=== PATIENT | male | born 1990 | race Hispanic/Latino ===

== ENCOUNTER 2024-04-11 13:35 | Emergency (ER) | payer BC ==
[2024-04-11 14:12] LABS: Absolute Basophils 0.1 K/uL (0-0.5); Absolute Eosinophils 0.5 K/uL (0-0.5); Absolute Lymphocytes (CBC) 3.6 K/uL (0.7-4.9); Absolute Monocytes 0.7 K/uL (0.1-1.3); Absolute Neutrophil 7.1 K/uL (1.8-8.0); Basophils % 0.6 % (0-1.3); Eosinophils % 4.2 % (0-4.4); Hematocrit 45.3 % (39.6-49.0); Hemoglobin 14.9 g/dL (13.6-17.9); Lymphocytes % 29.7 % (15.3-44.8); MCH 29.7 pg (27.0-35.0); MCV 90.1 fL (80-100); MPV 8.2 fL (7.6-11.3); Monocytes % 5.9 % (3.3-12.3); Neutrophils % 59.6 % (41.7-73.7); Nucleated Red Blood Cells % 0.1 % (0-0); Platelets 339 thou/uL (152-406); RBC Red Blood Cell Count 5.02 M/uL (4.33-5.43); Red Cell Distribution Width 13.6 % (12.1-15.2)
[2024-04-11 14:27] LABS: ALT/SGPT 33 U/L (16-61); AST/SGOT 16 U/L (15-37); Albumin 3.8 g/dL (3.4-5.0); Alkaline Phosphatase 86 U/L (45-117); Anion Gap 8.7 mEq/L (5.0-15.0); BUN Blood Urea Nitrogen 11 mg/dL (7-18); Bicarbonate 25 mEq/L (21-32); Bilirubin Total 0.4 mg/dL (0.2-1.0); Glomerular Filtration Rate 119 ml/min (=/>90); Glucose Level 127 mg/dL (74-106); Magnesium 1.5 mg/dL (1.6-2.4); NT PRO-BNP 31 pg/mL (<125); Potassium 3.7 mEq/L (3.5-5.1); Protein, Total 7.8 g/dL (6.4-8.2); Sodium Level 136 mEq/L (136-145); Troponin High Sensitivity 29.8 pg/mL (<58.9)
[2024-04-11 14:29] LABS: Bilirubin Direct < 0.2 mg/dL (0-0.2); Bilirubin Indirect, Calculated 0.2 mg/dL (0.2-0.8)
--- NOTE | 2024-04-11 15:44 | RAD REPORT ---
EXAMINATION: ONE VIEW CHEST XR CLINICAL INDICATION: Male, 33 years old. [facility] MAIN CHEST PAIN Bed Name: 3 TECHNIQUE: Frontal chest projection is submitted. Examination is limited by patient positioning and t echnique. COMPARISON: No prior exam. FINDINGS: The lungs are well inflated and clear. No pneumothorax or sizable effusion. The heart is normal in s ize. IMPRESSION: No acute intrathoracic abnormalities.
[2024-04-11] MEDS ORDERED: MAGNESIUM OXIDE 400 MG TAB ONE (15:57)
--- NOTE | 2024-04-11 16:49 | EDPHYS ---
Physician Documentation [facility] Name: Kevan Coronel Age: 33 yrs Sex: Male : 1990 Arrival Date: 04/11/2024 Time: 13:35 Bed 3 Private MD: ED Physician Juancarlos Henning HPI: 04/11 13:51 This 33 yrs old Male presents to ER via Ambulatory with complaints of Chest kb Pain. 13:51 Pt is a 33 year old male who presents for chest pain to the left side that started at kb 0500 this morning and has not gotten any better. States he has felt some tingling to left arm and face as well. Denies shortness of breath, nausea, vomiting. States he took preworkout around 4:30, the worked out and the pain started after he took a shower and got into his truck to leave home. States he normally drinks the preworkout or an energy drink in the mornings and has never had these symptoms before. . Historical: - Allergies: 13:45 No Known Allergies; ko1 - Home Meds: 13:46 Mounjaro 2.5 mg/0.5 mL subcutaneous Pen Injector 2.5 mg [Active]; Metformin Oral ko1 [Active]; fenofibrate oral [Active]; - PMHx: 13:45 Diabetes mellitus; Hypercholesterolemia; ko1 - PSHx: 13:46 None; ko1 - Immunization history:: Adult Immunizations up to date. - Infectious Disease History:: Denies. - Social history:: Smoking status: Patient denies any tobacco usage or history of. ROS: 13:50 Constitutional: As per HPI kb Exam: 13:50 Constitutional: This is a well developed, well nourished patient who is awake, alert, kb and in no acute distress. Head/Face: Normocephalic, atraumatic. ENT: Moist Mucous membranes Cardiovascular: Regular rate Respiratory: Respirations even and unlabored. No increased work of breathing. Talking in full sentences Abdomen/GI: Soft, non-tender. No distention Skin: Warm, dry with normal turgor. Normal color. MS/ Extremity: Pulses equal, no cyanosis. Neurovascular intact. Full, normal range of motion. Neuro: Awake and alert, GCS 15, oriented to person, place, time, and situation. Moves all extremities. Normal gait. 14:28 ECG was reviewed by the Attending Physician. kb Vital Signs: 13:41 BP 150 / 112; Pulse 92; Resp 18; Temp 98.3; Pulse Ox 98% ; ko1 14:30 BP 124 / 81; Pulse 89; Resp 18; Pulse Ox 97% ; me1 16:21 BP 132 / 91; Pulse 83; Resp 16 S; Pulse Ox 100% on R/A; kc6 16:48 BP 126 / 85; Pulse 99; Resp 16 S; Pulse Ox 100% on R/A; kc6 MDM: 13:40 Patient medically screened. kb 13:50 Differential diagnosis: arrhythmia, acute MO, adverse reaction to preworkout, abnormal kb electrolytes. Data reviewed: vital signs, nurses notes. 16:28 Consideration of Admission/Observation admission considered but HEART score 1, serial kb troponins negative. Test considered but Not performed: CT: ct chest considered but d-dimer negative. Counseling: I had a detailed discussion with the patient and/or guardian regarding the historical points, exam findings, and any diagnostic results supporting the discharge/admit diagnosis, lab results, radiology results, the need for outpatient follow up, a family practitioner, to return to the emergency department if symptoms worsen or persist or if there are any questions or concerns that arise at home. 04/11 13:49 Order name: Basic Metabolic Panel; Complete Time: 14:38 kb 04/11 13:49 Order name: CBC with Diff; Complete Time: 14:24 kb 04/11 13:49 Order name: D-Dimer; Complete Time: 14:38 kb 04/11 13:49 Order name: LFT's; Complete Time: 14:38 kb 04/11 13:49 Order name: Magnesium; Complete Time: 14:38 kb 04/11 13:49 Order name: NT PRO-BNP; Complete Time: 14:38 kb 04/11 13:49 Order name: Troponin HS; Complete Time: 14:38 kb 04/11 15:32 Order name: Troponin High Sensitivity; Complete Time: 16:47 kb 04/11 13:49 Order name: XRAY Chest (1 view); Complete Time: 15:46 kb 04/11 13:49 Order name: Cardiac monitoring; Complete Time: 14:12 kb 04/11 13:49 Order name: EKG - Nurse/Tech; Complete Time: 14:12 kb 04/11 13:49 Order name: IV Saline Lock; Complete Time: 14:04 kb 04/11 13:49 Order name: Labs collected and sent; Complete Time: 14:04 kb 04/11 13:49 Order name: O2 Per Protocol; Complete Time: 14:04 kb 04/11 13:49 Order name: O2 Sat Monitoring; Complete Time: 14:04 kb EC:28 Rate is 89 beats/min. Rhythm is regular. QRS [place] is Normal. CA interval is normal at kb 156 msec. QRS interval is normal at 98 msec. QT interval is normal at 413 msec. Administered Medications: 15:58 Drug: Magnesium PO 400 mg PO once Route: PO; me1 16:49 Follow up: Response: No adverse reaction kc6 Disposition: 17:19 Co-signature as Attending Physician, Juancarlos Henning MD I reviewed the patient's care rn provided by the Advanced Practice Provider and agree with the diagnosis and treatment plan. Disposition Summary: 04/11/24 16:48 Discharge Ordered Notes: Location: Home kb Condition: Stable kb Diagnosis - Chest pain, unspecified kb Followup: kb - With: Emergency Department - When: As needed - Reason: Worsening of condition Followup: kb - With: Private Physician - When: 2 - 3 days - Reason: Recheck today's complaints, Continuance of care, Re-evaluation by your physician Discharge Instructions: - Discharge Summary Sheet kb - Nonspecific Chest Pain, Adult, Clua-ab-Tygn kb Forms: - Medication Reconciliation Form kb - Antibiotic Education kb - Prescription Opioid Use kb - Patient Portal Instructions kb - Leadership Thank You Letter kb Signatures: Dispatcher [employer] EDSalma St FNP-C JINRIKSHA DRIVER-Ckb Juancarlos Henning MD MD rn Oliver, Kathy, RN RN ko1 Nori Barnard RN RN me1 Lana Peraza RN kc6 Corrections: (The following items were deleted from the chart) 13:50 13:50 Chest Single View+RAD.RAD.[email or web address] ordered. EDND EDND
--- NOTE | 2024-04-11 16:49 | ER ---
Nurse's Notes [facility] Name: Kevan Coronel Age: 33 yrs Sex: Male : 1990 Arrival Date: 04/11/2024 Time: 13:35 Bed 3 Private MD: Diagnosis: Chest pain, unspecified Presentation: 04/11 13:41 Chief complaint: Patient states: about 5am took pre-workout and exercised, left arm ko1 tingling and face tingling and chest hurts on the left. Coronavirus screen: At this time, the client does not indicate any symptoms associated with coronavirus-19. Ebola Screen: No symptoms or risks identified at this time. Initial Sepsis Screen: Does the patient meet any 2 criteria? No. Patient's initial sepsis screen is negative. Does the patient have a suspected source of infection? No. Patient's initial sepsis screen is negative. Risk Assessment: Do you want to hurt yourself or someone else? Patient reports no desire to harm self or others. Onset of symptoms was April 11, 2024. 13:41 Method Of Arrival: Ambulatory ko1 13:41 Acuity: JIMMIE 2 ko1 Triage Assessment: 13:46 General: Appears in no apparent distress. uncomfortable, Behavior is anxious. Pain: ko1 Complains of pain in chest and left arm. Cardiovascular: Reports chest pain. Historical: - Allergies: 13:45 No Known Allergies; ko1 - Home Meds: 13:46 Mounjaro 2.5 mg/0.5 mL subcutaneous Pen Injector 2.5 mg [Active]; Metformin Oral ko1 [Active]; fenofibrate oral [Active]; - PMHx: 13:45 Diabetes mellitus; Hypercholesterolemia; ko1 - PSHx: 13:46 None; ko1 - Immunization history:: Adult Immunizations up to date. - Infectious Disease History:: Denies. - Social history:: Smoking status: Patient denies any tobacco usage or history of. Screenin:12 [facility] ED Fall Risk Assessment (Adult) History of falling in the last 3 months, me1 including since admission No falls in past 3 months (0 pts) Confusion or Disorientation No (0 pts) Intoxicated or Sedated No (0 pts) Impaired Gait No (0 pts) Mobility Assist Device Used No (0 pt) Altered Elimination No (0 pt) Score/Fall Risk Level 0 - 2 = Low Risk Maintained a safe environment, Provided non-skid footwear, Hourly rounding (assess needs \T\ fall precautionary measures) done. Abuse screen: Denies threats or abuse. Nutritional screening: No deficits noted. Tuberculosis screening: No symptoms or risk factors identified. Assessment: 14:12 General: Appears uncomfortable, well groomed, well developed, well nourished, Behavior me1 is calm, cooperative, appropriate for age, Reports about 5am took pre-workout and exercised, left arm tingling and face tingling and chest hurts on the left. Pain: Complains of pain in chest Pain radiates to left arm Pain currently is 3 out of 10 on a pain scale. Quality of pain is described as Pain began gradually, Is continuous. Neuro: Level of Consciousness is awake, alert, obeys commands, Oriented to person, place, time, situation, Appropriate for age. Cardiovascular: Patient's skin is warm and dry. Respiratory: Airway is patent Respiratory effort is even, unlabored, Respiratory pattern is regular, symmetrical. GI: No signs and/or symptoms were reported involving the gastrointestinal system. : No signs and/or symptoms were reported regarding the genitourinary system. EENT: No signs and/or symptoms were reported regarding the EENT system. Derm: Skin is intact, is healthy with good turgor, Skin is pink, warm \T\ dry. Musculoskeletal: No signs and/or symptoms reported regarding the musculoskeletal system. 16:21 Reassessment: Patient appears in no apparent distress at this time. No changes from kc6 previously documented assessment. Patient and/or family updated on plan of care and expected duration. Pain level reassessed. Patient is alert, oriented x 3, equal unlabored respirations, skin warm/dry/pink. 16:48 Reassessment: Patient appears in no apparent distress at this time. No changes from kc6 previously documented assessment. Patient and/or family updated on plan of care and expected duration. Pain level reassessed. Patient is alert, oriented x 3, equal unlabored respirations, skin warm/dry/pink. Vital Signs: 13:41 BP 150 / 112; Pulse 92; Resp 18; Temp 98.3; Pulse Ox 98% ; ko1 14:30 BP 124 / 81; Pulse 89; Resp 18; Pulse Ox 97% ; me1 16:21 BP 132 / 91; Pulse 83; Resp 16 S; Pulse Ox 100% on R/A; kc6 16:48 BP 126 / 85; Pulse 99; Resp 16 S; Pulse Ox 100% on R/A; kc6 ED Course: 13:37 Patient arrived in ED. ra3 13:40 Salma Silver, [facility] kb 13:40 Juancarlos Henning MD is Attending Physician. kb 13:45 Triage completed. ko1 13:46 Arm band placed on right wrist. Patient placed in an exam room, on a stretcher, on ko1 quality assurance monitor chassis, on pulse oximetry, Patient notified of wait time. 13:50 Nori Barnard, ANNAMARIA is Primary Nurse. me1 14:00 Client placed on continuous cardiac and pulse oximetry monitoring. NIBP monitoring me1 applied. quality assurance monitor chassis on. Pulse ox on. NIBP on. 14:03 Initial lab(s) drawn, by me, sent to lab. EKG done, by ED staff, reviewed by Salma me1 Nadeem HENDERSON. Inserted saline lock: 20 gauge in left antecubital area, using aseptic technique. 14:04 Basic Metabolic Panel Sent. me1 14:04 CBC with Diff Sent. me1 14:04 D-Dimer Sent. me1 14:04 LFT's Sent. me1 14:04 Magnesium Sent. me1 14:04 NT PRO-BNP Sent. me1 14:04 Troponin HS Sent. me1 14:12 Patient has correct armband on for positive identification. Bed in low position. Call me1 light in reach. Side rails up X 1. Provided Education on: POC. Verbalized understanding. . 14:12 No provider procedures requiring assistance completed. Patient maintains SpO2 me1 saturation greater than 95% on room air. 14:37 XRAY Chest (1 view) In Process Unspecified. EDMS 16:02 Repeat lab(s) drawn. by me, sent to lab. me1 16:54 IV discontinued, intact, bleeding controlled, No redness/swelling at site. Pressure kc6 dressing applied. Administered Medications: 15:58 Drug: Magnesium PO 400 mg PO once Route: PO; me1 16:49 Follow up: Response: No adverse reaction kc6 Medication: 14:12 VIS not applicable for this client. me1 Outcome: 16:48 Discharge ordered by MD. dickson 16:53 Discharged to home ambulatory, with significant other, kc6 16:53 Condition: improved 16:53 Discharge instructions given to patient, significant other, Instructed on discharge instructions, follow up and referral plans. Demonstrated understanding of instructions, follow-up care, 16:54 Patient left the ED. kc6 Signatures: Dispatcher [employer] EDSalma St, ENDY-C CAREERS ADVISER-Lana Comer RN RN kc6 Gloria Whitfield RN RN ko1 Nori Barnard RN RN me1 Sharifa Whitaker ra3 Corrections: (The following items were deleted from the chart) 14:12 13:41 Chief complaint: Patient states: about 5am took pre-workout and exercised, left me1 arm tingling and face tingling and chest hurts on the left. ko1
[2024-04-11 17:27] VITALS: TEMP 98.3
[2024-04-11 17:30] VITALS: O2SAT 100
[2024-04-11 17:31] VITALS: BP 126/85
--- NOTE | 2024-04-13 12:13 | EKG ---
Test Date: 2024-04-11 Test Time: 14:08:49 Adjustment Clerk: MEASUREMENT RESULTS: Intervals: Rate: 89 DC: 156 QRSD: 98 QT: 340 QTc: 413 [place]: P: 49 DC: 156 QRS: 59 T: 58 INTERPRETIVE STATEMENTS: Normal sinus rhythm Normal ECG No previous ECG available for comparison Electronically Signed On 04-13-24 12:10:11 CDT by Gunner Huertas
== END 2024-04-11 16:54 | disposition home or self-care (01) ==
LOC: ER 13:35
DX: R07.9 Chest pain, unspecified (principal); E11.9 Type 2 diabetes mellitus without complications; E78.00 Pure hypercholesterolemia, unspecified
CPT/HCPCS: 36415; 71045; 80048; 80076; 83735; 83880; 84484; 85025; 85379; 93005; 99284